=== PATIENT | female | born 1975 | race Caucasian/White ===

== ENCOUNTER → 2019-01-08 | Outpatient (CLI) | payer OTHER ==
[~2019-01-08] MED LIST: ALBU2.5V8 INH; CONTRAST GIVEN. MC PRN; IOHEXOL 300 MG/ML 100ML VIAL. IV ONE
--- NOTE | 2019-01-09 09:34 | [facility]IC ---
CT SOFT TISSUE NECK W/CONTRAST Indication: Sialoadenitis. Left facial swelling. Exposure: One or more of the following individualized dose reduction techniques were utilized for this examination: 1. Automated exposure control 2. Adjustment of the mA and/or kV according to patient size 3. Use of iterative reconstruction technique. Technique: Standard imaging obtained after intravenous contrast administration. Vascular structures appear grossly patent. Mild thyroid gland heterogeneity, may represent goiter or small nodules. Visualized sinuses are clear. The left submandibular gland is mildly enlarged as compared with the right. Submandibular glands demonstrate homogeneous density. Small calcification identified in the region of the submandibular duct, just medial to the hilum of the submandibular gland, compatible with a small calculus measuring 1 mm. Mildly enlarged lymph node just lateral to the left submandibular gland measures 10 mm x 13 mm. Parotid glands are homogeneous and symmetric. The airway is patent and midline. Parapharyngeal soft tissues appear unremarkable. Small cervical lymph nodes are identified bilaterally. These measure up to 1 cm in short axis. Mildly prominent submandibular lymph nodes are also identified. Lung apices are clear. No significant asymmetric fatty stranding in the subcutaneous tissues of the neck. IMPRESSION: 1. Mild enlargement of the left submandibular gland, compatible with mild sialoadenitis. Findings also compatible with a small 1 mm sialolith in the submandibular duct. Mildly enlarged lymph node just lateral to the left submandibular gland. 2. Mild nonspecific cervical and submandibular lymph node enlargement, may be reactive. 3. Mild thyroid gland heterogeneity, could represent multinodular goiter or small thyroid nodules. Thyroid ultrasound could further evaluate. Electronically signed by: Gabo Moran MD (01/09/2019 9:31 AM) [facility]
== END | disposition home or self-care (01) ==
LOC: KCIC CT 08:52
PROVIDERS: ATTEND Family Medicine
DX: K11.20 Sialoadenitis, unspecified (principal); R59.0 Localized enlarged lymph nodes
CPT/HCPCS: 70491; Q9967